=== PATIENT | male | born 1990 | race African-American/Black ===

== ENCOUNTER 2016-06-01 02:58 | Emergency (ER) | payer MEDICAID | END 2016-06-01 03:00 | disposition home or self-care (01) | LOC: CED 02:58 | DX: F31.9 Bipolar disorder, unspecified (principal); G47.00 Insomnia, unspecified | CPT/HCPCS: 99283 ==

== ENCOUNTER → 2016-07-03 16:10 | Emergency (ER) | payer MEDICAID | END | disposition left against medical advice (07) | LOC: CED 16:10 | DX: Z53.21 Procedure and treatment not carried out due to patient leaving prior to being seen by health care provider (principal) ==

== ENCOUNTER 2016-07-05 04:24 | Emergency (ER) | payer MEDICAID | END 2016-07-05 05:07 | disposition home or self-care (01) | LOC: CED 04:24 | DX: G89.29 Other chronic pain (principal); R07.9 Chest pain, unspecified; R05 Cough; F33.9 Major depressive disorder, recurrent, unspecified; F17.210 Nicotine dependence, cigarettes, uncomplicated | CPT/HCPCS: 99283 ==